=== PATIENT | female | born 1965 | race African-American/Black ===

== ENCOUNTER 2017-05-21 18:23 | Emergency (ER) | payer OTHER ==
--- NOTE | ~2017-05-21 | CT105 ---
[facility] A Service of [facility] RADIOLOGY TEXT RESULTS PATIENT: JOSE LUIS WHYTE LOCATION: SED : 63 UNIT #: [id number] AGE: [address]: Skinny Hwang MD SEX: F ORDER DR: [id number] [place] [id number] E MR#: [id number] #: [id number] NAME: JOSE LUIS WHYTE : 1965 SEX: F STUDY DATE/TIME: 05/21/2017 20:28 UNIT: SED ROOM: STUDY DESCRIPTION: CT Pelvis W Cont Attending Physician: Skinny Hwang M.D. Ordering Physician: Skinny Hwang M.D. Primary Care Physician: Rush Sinclair M.D. MEDICAL IMAGING REPORT This report is preliminary unless electronic signature is present. EXAM CT pelvis with contrast HISTORY 53-year-old female swelling vulva anal region, patient with vaginal perianal pain and swelling. History of vulval carcinoma, genital herpes. This CT exam was performed with one or more of the following radiation dose reduction techniques: automatic exposure control, adjustment of mA and/or kV according to patient size, and iterative reconstruction. TECHNIQUE Axial images performed through the pelvis following IV contrast. Bladder is distended. Uterus and adnexa unremarkable. Visualized GI tract unremarkable. Postsurgical change is noted of the lower anterior abdominal wall. Radiodensities in the perirectal and vaginal introitus may represent surgical clips. Correlate with surgical history. Ischiorectal fossa appears normal. Generalized obesity. Mild facet arthropathy lower lumbar spine. Mild induration of the perirectal and vaginal soft tissues. Superficial varicosities noted anterior thigh bilaterally. IMPRESSION 1. Mild induration of the perirectal and vaginal soft tissues could represent focal inflammatory process. No drainable fluid collection or abscess identified. No involvement of the ischiorectal fossa. 2. Moderate bladder distension. Dictated by.Neeraj Burdick M.D. [facility] A Service of [facility] RADIOLOGY TEXT RESULTS PATIENT: JOSE LUIS WHYTE [place] [facility] [place] 63 [place] #: [id number] AGE: [address]: Skinny Hwang MD SEX: F ORDER DR: THIS IS AN ELECTRONICALLY VERIFIED REPORT Ricky Burdick M.D. at 05/22/2017 2:49 PM Chitra TD: 05/22/2017 03:07 JOB #: [id number] MEDICAL IMAGING REPORT Page 1 of 1
[~2017-05-21 18:23] MED LIST: ACYCLOVIR PO; ASPIRIN81 M1 PO; ASPIRIN81 MG PO; ATARAX PO; BACLOFEN10 MG PO; BACTROBAN22 GM TOP; BAYER ASPIRIN325 M1; BAYER ASPIRIN325 M1 PO; BENTYL10 MG DOB; BENTYL10 MG PO; BENTYL20 M1 PO; BENTYL20 MG PO; CIPRO PO; CIPRO750 MG PO; CLEOCIN PO; CLEOCIN150 M1 PO; CLINDAMYCIN HC300 MG PO; DAILY VALUE1 EACH PO; DARVOCET-N 1001 TA2 PO; DICYCLOMINE HCL20 MG; FAMOTIDINE PO; FLAGYL PO; HYDROCODON-ACE1 EAC5 PO; KEFLEX500 M1 PO; LEVAQUIN PO; LEVSIN0.125 M1 PO; LISINOPRIL20 MG; LORCET 10-6501 EACH PO; LORTAB 10-5001 EACH PO; LORTAB 5-325 M1 EACH PO; LORTAB 5/500 TA1 TA1 PO; LORTAB 5/500 TA1 TA2 PO; LOW DOSE ASPIRI81 M2; MELOXICAM15 MG PO; METFORMIN HCL500 M1; METRONIDAZOLE PO; MOBIC15 MG; MULTI VITAMIN1 EACH PO; MULTIVITAMIN PO; MULTIVITAMINS1 EAC2; NORFLEX100 M1 PO; NORVASC PO; NORVASC10 MG; NORVASC10 MG PO; NORVASC2.5 MG; OMEPRAZOLE40 MG PO; PHENERGAN; PHENERGAN PO; PHENERGAN PR; PHENERGAN SUPP25 M1 PR; PHENERGAN SUPP25 MG PR; PHENERGAN12.5 M1 PR; PHENERGAN25 M1 PO; PHENERGAN25 MG; PHENERGAN25 MG PO; PRILOSEC PO; PRILOSEC20 M1; PRILOSEC20 M1 PO; PRILOSEC20 MG PO; PROTONIX PO; ROBAXIN PO; ROBAXIN500 MG PO; TENORMIN25 MG PO; TYLENOL #3 PO; VICODIN 5/1 TAB 5/50 PO; VOLTAREN75 MG; VOLTAREN75 MG PO; ZANTAC PO; ZANTAC150 M1; ZANTAC150 MG PO; ZOFRAN ODT4 MG PO; ZOFRAN PO; ZOFRAN8 MG PO; ZOFRANODT PO; ZOFRANODT SL; ZOVIRAX15 GM TOP; ZYCLARA7.5 G1 TOP
[2017-05-21] MEDS ORDERED: ALBUTEROL17 GM (18:35)
[2017-05-21] MEDS ORDERED: SPIRIVA18 MCG (18:35)
[2017-05-21 19:37] LABS: URINE SOURCE CLEAN CATCH
[2017-05-21 19:39] LABS: URINE APPEARANCE CLEAR; URINE BILIRUBIN NEG (NEG); URINE BLOOD NEG (NEG); URINE COLOR YELLOW; URINE GLUCOSE NEG (NORM); URINE KETONE NEG (NEG); URINE LEUKOCYTE ESTERASE NEG (NEG); URINE NITRATE NEG (NEG); URINE PROTEIN NEG (NEG); URINE SPECIFIC GRAVITY <=1.005 (1.003-1.035); URINE UROBILINOGEN 0.2 MG/DL (NORM)
[2017-05-21 19:40] LABS: MICRO INDICATED? NO
[2017-05-21 19:53] LABS: BASOPHIL% 0.4 % (0-2.5); EOSINOPHIL# 0.1 X10e3 (0-0.7); EOSINOPHIL% 0.8 % (0.0-7.0); HEMATOCRIT 32.9 % (35.0-45.0); LYMPHOCYTE# 0.7 X10e3 (1.0-3.5); LYMPHOCYTE% 10.1 % (17.0-45.0); MEAN CELL VOLUME 95.2 FL (83-96); MEAN CORPUSCULAR HEMOGLOBIN 31.7 PG (28-34); MEAN CORPUSCULAR HGB CONC 33.3 g/dL (30-36); MEAN PLATELET VOLUME 7.5 FL (6.5-11.5); MONOCYTE# 0.7 X10e3 (0-1.0); MONOCYTE% 9.8 % (3.0-12.0); NEUTROPHIL# 5.5 X10e3 (1.5-7.1); NEUTROPHIL% 78.9 % (40-75); PLATELET COUNT 265 X10e3 (140-420); RED BLOOD COUNT 3.46 X10e (3.90-5.30); RED CELL DISTRIBUTION WIDTH 14.6 % (11.0-15.5); WHITE BLOOD COUNT 6.9 X10e3 (4.0-10.5)
[2017-05-21 19:57] LABS: DIFF IND NO
[2017-05-21 20:10] LABS: BUN/CREATININE RATIO 21.42; CALCIUM SERUM 9.3 mg/dL (8.4-10.2); CREATININE SERUM 0.7 mg/dL (0.6-1.4); GLOM FILT RATE Estimated 114.6 mL/min (>60); POTASSIUM 3.5 mmol/L (3.5-5.1)
== END 2017-05-21 21:46 | disposition home or self-care (01) ==
LOC: SED 18:23
PROVIDERS: Emergency Medicine
DX: G89.18 Other acute postprocedural pain (principal); R10.2 Pelvic and perineal pain; E11.9 Type 2 diabetes mellitus without complications; K21.9 Gastro-esophageal reflux disease without esophagitis; F17.200 Nicotine dependence, unspecified, uncomplicated
CPT/HCPCS: 36415; 72193; 80048; 81003; 85025; 96374; 96375; 99284; J2270; J2405; Q9967

== ENCOUNTER 2017-07-08 18:08 | Emergency (ER) | payer OTHER ==
[~2017-07-08 18:08] MED LIST changes: +ALBUTEROL17 GM; +SPIRIVA18 MCG
== END 2017-07-08 20:03 | disposition home or self-care (01) ==
LOC: SED 18:08
DX: T78.3XXA Angioneurotic edema, initial encounter (principal); K21.9 Gastro-esophageal reflux disease without esophagitis; I10 Essential (primary) hypertension; Z90.49 Acquired absence of other specified parts of digestive tract; Z88.0 Allergy status to penicillin; Z88.2 Allergy status to sulfonamides; Z79.82 Long term (current) use of aspirin; Z79.899 Other long term (current) drug therapy; Z88.1 Allergy status to other antibiotic agents
CPT/HCPCS: 96372; 99283; J1100; J1200

== ENCOUNTER 2017-07-30 19:44 | Emergency (ER) | payer OTHER ==
[~2017-07-30] VITALS: Ht 165.1 cm; Wt 108.0 kg
[2017-07-30] MEDS ORDERED: HYDROCODON-ACE1 EAC5 PO (20:43)
[2017-07-30] MEDS ORDERED: MORPHINE SULFAT30 M3 PO (20:43)
== END 2017-07-30 22:42 | disposition home or self-care (01) ==
LOC: SED 19:44
DX: C51.9 Malignant neoplasm of vulva, unspecified (principal); I10 Essential (primary) hypertension; Z90.49 Acquired absence of other specified parts of digestive tract; Z88.0 Allergy status to penicillin; Z88.2 Allergy status to sulfonamides; Z88.1 Allergy status to other antibiotic agents; Z79.899 Other long term (current) drug therapy
CPT/HCPCS: 96372; 99283; J1170; J1885; J2550

== ENCOUNTER 2017-08-10 18:38 | Emergency (ER) | payer OTHER ==
[~2017-08-10 18:38] MED LIST changes: +MORPHINE SULFAT30 M3 PO
[2017-08-10 20:01] LABS: BASOPHIL# 0.1 X10e3 (0-0.3); BASOPHIL% 0.6 % (0-2.5); EOSINOPHIL# 0.1 X10e3 (0-0.7); EOSINOPHIL% 0.6 % (0.0-7.0); HEMATOCRIT 27.9 % (35.0-45.0); HEMOGLOBIN 9.6 gm/dL (12.0-16.0); LYMPHOCYTE# 1.1 X10e3 (1.0-3.5); LYMPHOCYTE% 11.7 % (17.0-45.0); MEAN CELL VOLUME 90.4 FL (83-96); MEAN CORPUSCULAR HEMOGLOBIN 31.2 PG (28-34); MEAN CORPUSCULAR HGB CONC 34.5 g/dL (30-36); MEAN PLATELET VOLUME 6.7 FL (6.5-11.5); MONOCYTE% 10.1 % (3.0-12.0); NEUTROPHIL# 7.3 X10e3 (1.5-7.1); PLATELET COUNT 313 X10e3 (140-420); RED BLOOD COUNT 3.08 X10e (3.90-5.30); WHITE BLOOD COUNT 9.4 X10e3 (4.0-10.5)
[2017-08-10 20:02] LABS: DIFF IND NO
[2017-08-10 20:17] LABS: ALBUMIN SERUM 3.4 g/dL (3.5-5.0); BILIRUBIN,TOTAL 0.2 mg/dL (0.2-2.0); BUN/CREATININE RATIO 16.66; CALCIUM SERUM 9.2 mg/dL (8.4-10.2); CREATININE SERUM 0.6 mg/dL (0.6-1.4); GLOM FILT RATE Estimated 120.6 mL/min (>60); POTASSIUM 3.5 mmol/L (3.5-5.1); PROTEIN TOTAL SERUM 7.5 g/dL (6.0-8.3)
== END 2017-08-10 20:50 | disposition home or self-care (01) ==
LOC: SED 18:38
PROVIDERS: Nurse Practitioner
DX: R10.2 Pelvic and perineal pain (principal); Z90.49 Acquired absence of other specified parts of digestive tract; Z98.51 Tubal ligation status; Z79.82 Long term (current) use of aspirin; Z79.899 Other long term (current) drug therapy; Z88.2 Allergy status to sulfonamides; Z88.0 Allergy status to penicillin; Z88.8 Allergy status to other drugs, medicaments and biological substances
CPT/HCPCS: 80053; 85025; 99283